=== PATIENT | male | born 1955 | race Caucasian/White ===

== ENCOUNTER 2024-04-15 12:25 | Inpatient (IN) | payer MEDICARE, MEDICAID ==
[2024-04-15 12:47] LABS: #Basophils 0.06 10x3/uL (0.0-0.2); #Eosinophils Less than 0.03 10x3/uL (0.0-0.7); %Basophils 0.3 % (0.0-1.0); %Eosinophils 0.1 % (0.0-10.0); %Lymphocytes 5.6 % (21.0-51.0); %Monocytes 3.3 % (0.0-10.0); %Neutrophils 90.2 % (42.0-75.0); Hemoglobin 13.3 g/dL (14.0-18.0); Mean Corpuscular HGB CONC 32.4 g/dL (32.0-36.0); Mean Corpuscular Volume 92.6 fL (78.0-98.0); Mean Platelet Volume 10.7 fL (7.4-10.4); Platelet Count 268 10x3/uL (130-400); RBC Distribution Width 15.2 % (11.5-14.5); Red Blood Cell (RBC) Count 4.43 mill/uL (4.70-6.10)
[2024-04-15 13:10] LABS: ALT (SGPT) 14 U/L (8-55); AST (SGOT) 29 U/L (5-34); Alkaline Phosphatase 95 U/L (40-110); Anion Gap 15 mmol/L (10-20); BUN (Urea Nitrogen) 16 mg/dL (8.4-25.7); Bilirubin, Total 0.2 mg/dL (0.2-1.2); Calc. Creatinine Clearance 0 mL/min (70-130); Calcium 8.5 mg/dL (7.8-10.44); Carbon Dioxide 25 mmol/L (23-31); Chloride 105 mmol/L (98-107); Estimated GFR 83; Globulin 3.7 g/dL (2.4-3.5); Glucose 237 mg/dL (80-115); Potassium 4.1 mmol/L (3.5-5.1); Protein, Total 6.7 g/dL (5.8-8.1); Sodium 141 mmol/L (136-145)
[2024-04-15] MEDS ORDERED: Piperacillin/Tazobactam 4.5 GM VIAL ONE (13:17)
[2024-04-15] MEDS ORDERED: Sodium Chloride 0.9% 100 ML ONE (13:18)
[2024-04-15 13:26] LABS: Bacteria/HPF None Seen HPF (None Seen); Bilirubin Negative (Negative); Blood, Urine Trace (Negative); CAUTI Indications for Culture Fever or rigors; Clarity Clear (Clear); Glucose, Urine (Dipstick) Normal (Negative); Ketone, Urine Negative (Negative); Leukocyte Negative Leu/uL (Negative); Nitrite Negative (Negative); Protein, Urine (Dipstick) 200 mg/dL (Neg-Trace); RBC/HPF 0-3 HPF (0-3); Specific Gravity, Urine 1.022 (1.002-1.036); Squamous Epithelial 0-3 HPF (0-3); Urobilinogen Normal mg/dL (Less than 2); WBC/HPF 0-3 HPF (0-3)
[2024-04-15 13:28] LABS: Urine Culture Reflex No No
[2024-04-15] MEDS ORDERED: Fentanyl CADD 100 ML IV SCH (13:30)
[2024-04-15] MEDS ORDERED: fentaNYL 50 mcg/mL 1 mL Vial ONE (13:32)
[2024-04-15 13:39] LABS: Actual Bicarbonate (HCO3a) 25.7 mEq/L (22-28); Analyzer IN Cardio ER; Base Excess (BEa) -1.2 mEq/L (-2.0 to +3.0); CO2 Tension 51.9 mmHg (35.0-45.0); Calcium, Ionized (arterial) 1.12 mmol/L (1.12-1.30); Carboxyhemoglobin (COHb) 0.2 gm% (0.0-3.0); Hematocrit-ABG 40 % (42.0-52.0); Hemoglobin (Hb) 13.6 g/dL (14.0-18.0); O2 Tension (PaO2), arterial 419.5 mmHg (> 70.0); Potassium - ABG Lab 3.83 mmol/L (3.70-5.30); pH, Arterial 7.313 (7.35-7.45)
[2024-04-15 13:43] LABS: Puncture Site Left Radial artery
[2024-04-15 13:44] LABS: ALV-art Gradient 228.625 mmHg (0-20)
[2024-04-15] MEDS ORDERED: NOREPINEPHRINE 8 MG/250 ML-D5W 250 ML ONE (13:47)
[2024-04-15] MEDS ORDERED: Propofol 1,000 MG/100 ML VIAL IV PRN (18:30)
[2024-04-15] MEDS ORDERED: DISCONTINUE PREVIOUS NARCOTIC PAIN MEDICATIONS AND BENZODIAZEPINES FS SCH (18:30)
[2024-04-15] MEDS ORDERED: Propofol BOLUS 1,000 MG/100 ML VIAL IV PRN (18:30)
[2024-04-15] MEDS ORDERED: Fentanyl BOLUS 250 ML IVPB PRN (18:30)
[2024-04-15] MEDS ORDERED: Morphine 2 MG/ML VIAL SLOW IVP PRN (18:30)
[2024-04-15] MEDS: Lorazepam 2 MG/ML VIAL SLOW IVP PRN (18:44)
[2024-04-15] MEDS: Propofol 1,000 MG/100 ML VIAL IV ONE (18:45)
[2024-04-15] MEDS: Lorazepam 2 MG/ML VIAL ONE (18:45)
[2024-04-15] MEDS ORDERED: Ventilator Sedation Protocol FS SCH (19:05)
[2024-04-15] MEDS ORDERED: Glucagon 1 MG/ML KIT IM PRN (19:05)
[2024-04-15] MEDS ORDERED: Dextrose 5% in Water 1,000 ML IV PRN (19:05)
[2024-04-15] MEDS ORDERED: Dextrose 50% Abboject 50 ML SYRINGE SLOW IVP PRN (19:05)
[2024-04-15] MEDS ORDERED: Electrolyte Replacement Protocol 1 EACH FS SCH (19:05)
[2024-04-15] MEDS ORDERED: Ipratropium/Albuterol 3 ML NEB NEB PRN (19:07)
[2024-04-15] MEDS: Hydrocortisone Sod Succ/PF 100 mg/2 ml Vial IVP SCH (19:39)
[2024-04-15] MEDS: EPINEPHrine 4 MG in Dextrose 5% in Water 250 ML IVPB SCH (19:45)
[2024-04-15] MEDS ORDERED: Cefepime 2 GM in Sodium Chloride 0.9% 100 ML IVPB SCH (19:45)
[2024-04-15] MEDS: Sodium Chloride 0.45% 1,000 ML IV SCH (20:10)
[2024-04-15] MEDS: Sodium Chloride 0.9% 1,000 ML IV SCH ×2 (20:10→21:36)
[2024-04-15] MEDS ORDERED: Ondansetron PF 4 MG/2 ML Vial IVP PRN (20:32)
[2024-04-15] MEDS ORDERED: Electrolyte Replacement Protocol 1 EACH FS PRN (20:32)
[2024-04-15] MEDS ORDERED: Acetaminophen 650 MG Suppository PR PRN (20:32)
[2024-04-15] MEDS ORDERED: Ondansetron ODT 4 MG TAB PO PRN (20:32)
[2024-04-15] MEDS: Cefepime 2 GM in Sodium Chloride 0.9% 100 ML IVPB SCH (21:37)
[2024-04-15] MEDS: levETIRAcetam 500 MG (5 mL) VIAL SLOW IVP SCH (21:37)
[2024-04-15] MEDS: Famotidine/PF 20 mg/2ml Vial SLOW IVP SCH (21:37)
[2024-04-15] MEDS: methylPREDNISolone Sod Succ/PF 125 MG/2 ML VIAL IVP SCH (21:37)
[2024-04-15] MEDS: NOREPINEPHRINE 8 MG/250 ML-D5W 250 ML IVPB SCH (22:33)
[2024-04-15] MEDS: Azithromycin 500 MG in Sodium Chloride 0.9% 250 ML 250 ML IVPB SCH (22:33)
[2024-04-15] MEDS: Ventilator Sedation Protocol 1 EACH FS ONE (22:34)
[2024-04-15] MEDS: Vancomycin (BATCH) 1.5 GM in Premix 1 BAG IVPB SCH ×2 (23:12)
[2024-04-15] MEDS: Fentanyl CADD 100 ML IV SCH (23:15)
[2024-04-15] MEDS: Ipratropium/Albuterol 3 ML NEB NEB SCH (23:15)
[2024-04-16] MEDS ORDERED: Ipratropium/Albuterol 3 ML NEB NEB SCH (01:00)
[2024-04-16] MEDS: methylPREDNISolone Sod Succ 40 MG VIAL IVP SCH (02:44)
[2024-04-16 02:56] LABS: Actual Bicarbonate (HCO3a) 22.2 mEq/L (22-28); Analyzer IN Cardio ER; Base Excess (BEa) -3.7 mEq/L (-2.0 to +3.0); CO2 Tension 43.3 mmHg (35.0-45.0); Calcium, Ionized (arterial) 1.18 mmol/L (1.12-1.30); Carboxyhemoglobin (COHb) 0.4 gm% (0.0-3.0); Hematocrit-ABG 41 % (42.0-52.0); Hemoglobin (Hb) 14.1 g/dL (14.0-18.0); O2 Tension (PaO2), arterial 64.1 mmHg (> 70.0); Potassium - ABG Lab 4.01 mmol/L (3.70-5.30); pH, Arterial 7.328 (7.35-7.45)
[2024-04-16 03:00] LABS: Puncture Site RRAD
[2024-04-16 03:01] LABS: ALV-art Gradient 238.275 mmHg (0-20)
[2024-04-16 04:08] LABS: #Basophils 0.03 10x3/uL (0.0-0.2); #Eosinophils Less than 0.03 10x3/uL (0.0-0.7); %Basophils 0.1 % (0.0-1.0); %Lymphocytes 2.6 % (21.0-51.0); %Monocytes 2.6 % (0.0-10.0); %Neutrophils 94.2 % (42.0-75.0); Hematocrit 41.2 % (42.0-52.0); Hemoglobin 13.4 g/dL (14.0-18.0); Mean Corpuscular HGB CONC 32.5 g/dL (32.0-36.0); Mean Corpuscular Hemoglobin 29.4 pg (27.0-31.0); Mean Corpuscular Volume 90.4 fL (78.0-98.0); Mean Platelet Volume 11.7 fL (7.4-10.4); Platelet Count 280 10x3/uL (130-400); RBC Distribution Width 15.4 % (11.5-14.5); Red Blood Cell (RBC) Count 4.56 mill/uL (4.70-6.10)
[2024-04-16 04:12] VITALS: TEMP 99.1
[2024-04-16 04:29] LABS: Vancomycin, Random 19.9 ug/mL (See Comment)
[2024-04-16 04:31] LABS: ALT (SGPT) 15 U/L (8-55); AST (SGOT) 29 U/L (5-34); Albumin 2.6 g/dL (3.4-4.8); Alkaline Phosphatase 85 U/L (40-110); Anion Gap 16 mmol/L (10-20); BUN (Urea Nitrogen) 18 mg/dL (8.4-25.7); Bilirubin, Total 0.3 mg/dL (0.2-1.2); Calc. Creatinine Clearance 61 mL/min (70-130); Calcium 8.5 mg/dL (7.8-10.44); Carbon Dioxide 20 mmol/L (23-31); Chloride 104 mmol/L (98-107); Estimated GFR 76; Globulin 3.7 g/dL (2.4-3.5); Glucose 282 mg/dL (80-115); Potassium 3.9 mmol/L (3.5-5.1); Protein, Total 6.3 g/dL (5.8-8.1); Sodium 136 mmol/L (136-145)
[2024-04-16 04:32] LABS: Magnesium 1.6 mg/dL (1.6-2.6); Phosphorus 2.7 mg/dL (2.3-4.7)
[2024-04-16 05:22] LABS: CRP,High Sensitivity (Inhouse) 18.44 mg/dL (< or = 0.5)
[2024-04-16] MEDS ORDERED: Hydrocortisone Sod Succ/PF 100 mg/2 ml Vial IVP SCH (06:00)
[2024-04-16] MEDS ORDERED: Electrolyte Replacement Protocol FS PRN (08:00)
[2024-04-16] MEDS: Vasopressin In 0.9 % NaCl 40 UNIT in Premix 1 BAG IV SCH (08:49)
[2024-04-16] MEDS: Magnesium 2 GM/50 ML(in water) 2 GM in Premix 1 BAG IVPB SCH (08:50)
[2024-04-16] MEDS: Vancomycin 1 GM in Premix 1 BAG IVPB SCH (08:50)
[2024-04-16] MEDS ORDERED: Vancomycin 1.25 GM in Sodium Chloride 0.9% 250 ML 250 ML IVPB SCH (09:00)
[2024-04-16 10:35] VITALS: BP 103/77
[2024-04-16] MEDS ORDERED: Morphine 4 MG/ML VIAL SLOW IVP PRN (11:40)
[2024-04-16] MEDS: Glycopyrrolate 0.4 MG/ 2 ML VIAL SLOW IVP PRN (12:14)
[2024-04-16 13:13] VITALS: BMI 22.1
[2024-04-16] MEDS: Lorazepam 2 MG/ML VIAL SLOW IVP PRN (13:13)
[2024-04-17] MEDS ORDERED: Enoxaparin 40 MG (0.4 mL) SYRINGE SC SCH (09:00)
[2024-04-18] MEDS ORDERED: FLU (Fluad Triv) TS24-25 (65UP)/MF59C/PF 45 MCG/0.5 ML Syringe IM ONE (20:30)
== END 2024-04-16 16:45 | disposition expired | DRG 208 ==
LOC: ERS 12:25 → ERHOLD 15:54 → CCU 17:46
PROVIDERS: ADMIT Family Medicine; ATTEND Internal Medicine
PROC: 0BH17EZ Insertion of Endotracheal Airway into Trachea, Via Natural or Artificial Opening (ICD-10-PCS; principal; 2024-04-15)
PROC: 5A1935Z Respiratory Ventilation, Less than 24 Consecutive Hours (ICD-10-PCS; 2024-04-15)
DX: J96.21 Acute and chronic respiratory failure with hypoxia (principal); A41.9 Sepsis, unspecified organism; J18.9 Pneumonia, unspecified organism; R65.21 Severe sepsis with septic shock; S22.42XA Multiple fractures of ribs, left side, initial encounter for closed fracture; S27.0XXA Traumatic pneumothorax, initial encounter; C34.91 Malignant neoplasm of unspecified part of right bronchus or lung; J44.1 Chronic obstructive pulmonary disease with (acute) exacerbation; Z66 Do not resuscitate; V89.2XXA Person injured in unspecified motor-vehicle accident, traffic, initial encounter; F10.10 Alcohol abuse, uncomplicated; I95.9 Hypotension, unspecified; G40.909 Epilepsy, unspecified, not intractable, without status epilepticus; Z79.899 Other long term (current) drug therapy
CPT/HCPCS: 36416; 36556; 36600; 51701; 70450; 71045; 71275; 80053; 80202; 81001; 82805; 83605; 83735; 83880; 84100; 84145; 84443; 84484; 85025; 86141; 87040; 93005; 93010; 94002; 94003; 94640; 96365; 96366; 96367; 96368; 96376; J0171; J0456; J0692; J1720; J1953; J2060; J2250; J2543; J2919; J3010; J3370; J3370-JW; J3475; J3490; J7030; J7050; J7070; J7620